=== PATIENT | male | born 1985 | race Caucasian/White ===

== ENCOUNTER 2023-02-08 10:25 | Emergency (ER) | payer OTHER ==
[~2023-02-08] VITALS: Ht 175.3 cm; Wt 113.7 kg
[2023-02-08] MEDS ORDERED: NAPR-837 PO (13:58)
[2023-02-08 14:18] VITALS: BP 131/88; TEMP 98.5; O2SAT 97
== END 2023-02-08 14:20 | disposition home or self-care (01) ==
LOC: M ED 10:25
DX: S83.411A Sprain of medial collateral ligament of right knee, initial encounter (principal); Z91.030 Bee allergy status; Z79.1 Long term (current) use of non-steroidal anti-inflammatories (NSAID)

== ENCOUNTER → 2023-03-24 | Outpatient (CLI) | payer OTHER ==
[~2023-03-24] MED LIST: NAPR-837 PO
== END ==
LOC: M PLAIMG 13:23
PROVIDERS: ATTEND Orthopaedic Surgery
DX: S83.211A Bucket-handle tear of medial meniscus, current injury, right knee, initial encounter (principal)

== ENCOUNTER 2023-06-24 14:44 | Day surgery (SDC) | payer OTHER ==
[~2023-06-24] VITALS: Ht 177.8 cm; Wt 113.9 kg
[2023-06-24] MEDS ORDERED: LR 1,000 ML IV SCH ×2 (15:00→19:20)
[2023-06-24] MEDS ORDERED: EPINEPHrine 1MG/ML INJ 30ML MD-VIAL As Ordered ONE (15:49)
[2023-06-24] MEDS ORDERED: fentaNYL 250 MCG/5 ML INJECTION As Ordered ONE (17:25)
[2023-06-24] MEDS ORDERED: MIDAZOLAM INJ 2MG/2ML VIAL As Ordered ONE (17:25)
[2023-06-24] MEDS ORDERED: propofoL 200 MG/20 ML VIAL As Ordered ONE ×2 (17:25→18:37)
[2023-06-24] MEDS ORDERED: KETOROLAC 60MG 2ML VIAL As Ordered ONE (17:25)
[2023-06-24] MEDS ORDERED: LIDOCAINE 2% 100MG/5ML SDV (FOR ANES.) As Ordered ONE (17:25)
[2023-06-24] MEDS ORDERED: ONDANSETRON 4MG 2ML VIAL As Ordered ONE (17:25)
[2023-06-24] MEDS ORDERED: ceFAZolin 2 GM/D5W 50 ML IV BAG As Ordered ONE (17:30)
[2023-06-24] MEDS ORDERED: dexmedeTOMIDine (4MCG/ML)200MCG/50ML BTL (PRECEDEX) As Ordered ONE (17:30)
[2023-06-24] MEDS ORDERED: TRANEXAMIC ACID 100 MG/ML 10ML VIAL As Ordered ONE (17:30)
[2023-06-24] MEDS ORDERED: ACETAMINOPHEN 1000MG 100ML IV BAG As Ordered ONE (18:48)
[2023-06-24] MEDS ORDERED: oxyCODONE 5MG TAB PO PRN (19:20)
[2023-06-24] MEDS ORDERED: HYDROMORPHONE HCL 0.5 MG/ 0.5 ML SYRINGE IV PRN (19:20)
[2023-06-24] MEDS ORDERED: ONDANSETRON 4MG 2ML VIAL IV PRN (19:20)
[2023-06-24] MEDS ORDERED: fentaNYL 100 MCG/2 ML INJECTION IV PRN (19:20)
[2023-06-24 20:19] VITALS: BP 136/81; TEMP 97.6; O2SAT 96
== END 2023-06-24 20:45 | disposition home or self-care (01) ==
LOC: M SDC 14:44
PROVIDERS: ATTEND Orthopaedic Surgery
DX: S83.211A Bucket-handle tear of medial meniscus, current injury, right knee, initial encounter (principal); X58.XXXA Exposure to other specified factors, initial encounter; Y92.89 Other specified places as the place of occurrence of the external cause; Y93.9 Activity, unspecified; Z91.030 Bee allergy status; F17.200 Nicotine dependence, unspecified, uncomplicated
CPT/HCPCS: 29870; C9290; J0131; J0171; J0665; J0690; J1100; J1885; J2250; J2405; J3010

== ENCOUNTER 2023-08-27 14:16 | Observation (INO) | payer OTHER ==
[~2023-08-27] VITALS: Ht 175.3 cm; Wt 125.0 kg
[~2023-08-27 14:16] MED LIST changes: +LIDOCAINE 2% 100MG/5ML SDV (FOR ANES.) As Ordered ONE; +MIDAZOLAM INJ 2MG/2ML VIAL As Ordered ONE; +ONDANSETRON 4MG 2ML VIAL As Ordered ONE; +ROCURONIUM BROMIDE 50MG/5ML VIAL As Ordered ONE; +fentaNYL 100 MCG/2 ML INJECTION As Ordered ONE; +propofoL 200 MG/20 ML VIAL As Ordered ONE
[2023-08-27] MEDS ORDERED: LR 1,000 ML IV SCH (15:35)
[2023-08-27] MEDS ORDERED: MIDAZOLAM INJ 2MG/2ML VIAL IV PRN (18:05)
[2023-08-27] MEDS ORDERED: fentaNYL 100 MCG/2 ML INJECTION IV PRN (18:05)
[2023-08-27] MEDS ORDERED: dexAMETHasone 10MG/1ML VIAL PRES.FREE PN ONE (18:15)
[2023-08-27] MEDS ORDERED: ROPIvacaine 0.5% 30ML VIAL PN ONE (18:15)
[2023-08-27] MEDS ORDERED: EPINEPHrine INJ 1 MG/ML 1ML AMP PN ONE (18:15)
[2023-08-27] MEDS ORDERED: ESMOLOL INJ 100MG/10ML VIAL As Ordered ONE (19:58)
[2023-08-27] MEDS ORDERED: ceFAZolin 1GM VIAL As Ordered ONE (20:02)
[2023-08-27] MEDS ORDERED: ACETAMINOPHEN 1000MG 100ML IV BAG As Ordered ONE (20:26)
[2023-08-27] MEDS ORDERED: TRANEXAMIC ACID 100 MG/ML 10ML VIAL As Ordered ONE (20:32)
[2023-08-27] MEDS ORDERED: ROCURONIUM BROMIDE 50MG/5ML VIAL As Ordered ONE (21:24)
[2023-08-27] MEDS ORDERED: SUGAMMADEX SODIUM 500 MG/5 ML VIAL (BRIDION) As Ordered ONE (22:07)
[2023-08-27] MEDS ORDERED: KETOROLAC 60MG 2ML VIAL As Ordered ONE (22:08)
[2023-08-27] MEDS ORDERED: VANCOMYCIN 1000MG/20ML VIAL As Ordered ONE (23:49)
[2023-08-28] VITALS (9 sets, daily range): BP systolic 111–145; BP diastolic 72–94; TEMP 97.5–99.7; O2SAT 92–97
[2023-08-28] MEDS ORDERED: oxyCODONE 5MG TAB PO PRN (01:05)
[2023-08-28] MEDS ORDERED: fentaNYL 100 MCG/2 ML INJECTION IV PRN (01:05)
[2023-08-28] MEDS ORDERED: MORPHINE 2 MG/ML 1ML VIAL IV PRN (01:05)
[2023-08-28] MEDS ORDERED: ONDANSETRON 4MG 2ML VIAL IV PRN ×2 (01:05→01:35)
[2023-08-28] MEDS ORDERED: NORCO, ANEXSIA 5/325MG TABLET (HYDROcodone/ACETAMINOPHEN) PO PRN (01:35)
[2023-08-28] MEDS: LR 1,000 ML IV SCH ×2 (02:18→08:52)
[2023-08-28] MEDS ORDERED: HOME MED LIST COMPLETE! XX SCH (03:00)
[2023-08-28 07:18] LABS: BLOOD UREA NITROGEN 15 MG/DL (9-23); CALCIUM LEVEL 8.7 MG/DL (8.5-10.1); CARBON DIOXIDE LEVEL 25 MMOL/L (20-31); CHLORIDE LEVEL 106 MMOL/L (98-107); CREATININE FOR GFR 0.95 MG/DL (0.70-1.30); GLOMERULAR FILTRATION RATE > 60.0 (>60); GLUCOSE, FASTING 113 MG/DL (60-100); SODIUM LEVEL 138 MMOL/L (136-145)
[2023-08-28] MEDS ORDERED: KETOROLAC 30 MG/ML 1ML VIAL IV ONE (08:00)
[2023-08-28] MEDS ORDERED: ACET-897 PO (11:12)
[2023-08-28] MEDS ORDERED: ASPI81TA26 PO (11:12)
[2023-08-28] MEDS ORDERED: IBUP-1022 PO (11:12)
[2023-08-28] MEDS ORDERED: PERC5TAB12 PO (13:23)
[2023-08-28] MEDS ORDERED: COLA100C5 PO (13:23)
[2023-08-28] MEDS ORDERED: OXYC-517 PO (13:27)
== END 2023-08-28 14:36 | disposition home or self-care (01) ==
LOC: M SDC 14:16 → M ED INP 14:17 → M MSPAV 08-28 01:48
PROVIDERS: ADMIT Internal Medicine; ATTEND Internal Medicine Nephrology
DX: S83.211A Bucket-handle tear of medial meniscus, current injury, right knee, initial encounter (principal); X58.XXXA Exposure to other specified factors, initial encounter; Y92.89 Other specified places as the place of occurrence of the external cause; Y93.9 Activity, unspecified; S00.532A Contusion of oral cavity, initial encounter; T88.4XXA Failed or difficult intubation, initial encounter; E66.01 Morbid (severe) obesity due to excess calories; Z79.82 Long term (current) use of aspirin; Z79.899 Other long term (current) drug therapy; Z91.030 Bee allergy status; F17.200 Nicotine dependence, unspecified, uncomplicated
CPT/HCPCS: 29882; 29888; 36415; 64447; 80048; 96361; 96374; 97116; 97161; C1713; J0131; J0171; J0690; J1100; J1805; J1885; J2250; J2405; J2795; J3010

== ENCOUNTER → 2023-09-02 | Outpatient (CLI) | payer OTHER ==
[~2023-09-02] MED LIST changes: +ACET-897 PO; +ASPI81TA26 PO; +COLA100C5 PO; +IBUP-1022 PO; -LIDOCAINE 2% 100MG/5ML SDV (FOR ANES.) As Ordered ONE; -MIDAZOLAM INJ 2MG/2ML VIAL As Ordered ONE; -ONDANSETRON 4MG 2ML VIAL As Ordered ONE; +OXYC-517 PO; +PERC5TAB12 PO; -ROCURONIUM BROMIDE 50MG/5ML VIAL As Ordered ONE; -fentaNYL 100 MCG/2 ML INJECTION As Ordered ONE; -propofoL 200 MG/20 ML VIAL As Ordered ONE
== END ==
LOC: M SOG 09:29
PROVIDERS: ATTEND Orthopaedic Surgery
DX: S83.211A Bucket-handle tear of medial meniscus, current injury, right knee, initial encounter (principal)

== ENCOUNTER → 2023-09-27 | Outpatient (CLI) | payer OTHER | LOC: M SOG 12:01 | PROVIDERS: ATTEND Physician Assistant | DX: S83.211D Bucket-handle tear of medial meniscus, current injury, right knee, subsequent encounter (principal) ==

== ENCOUNTER → 2024-01-06 | Outpatient (CLI) | payer OTHER | LOC: M SOG 09:40 | PROVIDERS: ATTEND Orthopaedic Surgery | DX: S83.211A Bucket-handle tear of medial meniscus, current injury, right knee, initial encounter (principal); Y93.9 Activity, unspecified; Y92.9 Unspecified place or not applicable ==

== ENCOUNTER 2025-05-27 17:47 | Emergency (ER) | payer OTHER ==
[~2025-05-27] VITALS: Ht 177.8 cm; Wt 117.8 kg
[~2025-05-27 17:47] MED LIST changes: -IBUP-1022 PO; +IBUP600T42 PO
[2025-05-27 19:12] LABS: BASO # 0.1 10^3/uL (0.0-0.2); BASO % 1.2 % (0.0-1.0); EOS # 0.3 10^3/uL (0.0-0.5); EOS % 2.4 % (0.0-3.0); LYMPH # 2.2 10^3/uL (1.5-5.0); LYMPH % 20.2 % (24.0-44.0); MONO # 0.8 10^3/uL (0.0-0.8); MONO % 7.7 % (2.0-8.0); NEUTROPHILS # 7.5 10^3/uL (1.5-8.5); NEUTROPHILS % 68.2 % (36.0-66.0); PLATELET COUNT, AUTOMATED 203 10^3/uL (150-450)
[2025-05-27 19:16] LABS: ERYTHROCYTE SEDIMENTATION RATE 25 mm/hr (0-15)
[2025-05-27 19:38] LABS: C REACTIVE PROTEIN QUANTITATIV < 0.50 MG/DL (<1.0)
[2025-05-27 19:39] LABS: ALT/SGPT 40 U/L (7.0-40); AST/SGOT 23 U/L (<34); CALCIUM LEVEL 9.6 MG/DL (8.5-10.1); CARBON DIOXIDE LEVEL 22 MMOL/L (20-31); CHLORIDE LEVEL 105 MMOL/L (98-107); CREATININE FOR GFR 0.86 MG/DL (0.70-1.30); GLOMERULAR FILTRATION RATE > 90.0 (>60); POTASSIUM SERUM 4.5 MMOL/L (3.5-5.1); SODIUM LEVEL 140 MMOL/L (136-145)
[2025-05-27 23:00] VITALS: BP 153/91
[2025-05-27] MEDS ORDERED: CLINDAMYCIN 900 MG in IV 1 EA IV ONE (23:15)
[2025-05-27] MEDS ORDERED: CLEO300C2 PO (23:19)
[2025-05-27 23:32] VITALS: TEMP 97.6; O2SAT 96
== END 2025-05-27 23:30 | disposition home or self-care (01) ==
LOC: M ED 17:47
DX: L03.114 Cellulitis of left upper limb (principal); Z91.030 Bee allergy status; Z79.82 Long term (current) use of aspirin; Z79.1 Long term (current) use of non-steroidal anti-inflammatories (NSAID); Z79.899 Other long term (current) drug therapy; Z79.2 Long term (current) use of antibiotics